=== PATIENT | male | born 1955 | race Caucasian/White ===

== ENCOUNTER 2017-01-19 20:59 | Inpatient (IN) | payer OTHER ==
[~2017-01-19] VITALS: Ht 177.8 cm; Wt 64.6 kg
[2017-01-19 21:14] LABS: ABG A-A DIFF O2 201.6 mmHg (10-20.0); ABG BASE EXCESS -13.5 mmol/L (-2.0-3.0); ABG HCO3 14.2 mmol/L (22.0-26.0); ABG OXYHEMOGLOBIN 96.6 % (94.0-100.0); ABG PCO2 47 mmHg (35-45); TEMPERATURE, FAHRENHEIT, BG 95.3 FAHREN (96.0-98.6)
[2017-01-19 21:15] LABS: ABG PH 7.136 (7.35-7.450); ALLEN TEST, BLOOD GAS Positive
[2017-01-19] MEDS ORDERED: FLUMAZENIL 0.1 MG/ML 5 ML VIAL IVP ONE (21:15)
[2017-01-19] MEDS ORDERED: NALOXONE HCL 1 MG/ML 2 ML SYG IVP ONE (21:15)
[2017-01-19] MEDS ORDERED: SODIUM CHLORIDE 0.9% 1,000 ML IV ONE (21:15)
[2017-01-19] MEDS: OXYGEN THERAPY IH SCH (21:21)
[2017-01-19 21:54] LABS: ANION GAP 16 mmol/L (8-16); BASOPHILS % (AUTO) 0.5 % (0.0-2.0); CALCIUM, TOTAL 8.5 mg/dL (8.8-10.5); CARBON DIOXIDE 22 mmol/L (22-29); CHLORIDE 103 mmol/L (98-107); CREATININE 1.78 mg/dL (0.60-1.30); GLOMERULAR FILTR. RATE CALC 39 mL/min (>60); HEMATOCRIT 45.5 % (41-53); HEMOGLOBIN 14.6 g/dL (13.5-17.5); LYMPHOCYTES # (AUTO) 5.5 K/uL (1.0-4.8); LYMPHOCYTES % (AUTO) 53.9 % (22.0-44.0); MEAN CORPUSCULAR HEMOGLOBIN 31.8 pg (26.0-34.0); MEAN CORPUSCULAR HGB CONC 32.2 G/dL (31.0-37.0); MEAN CORPUSCULAR VOLUME 99 fL (80-100); MONOCYTES % (AUTO) 9.6 % (2.0-9.0); NEUTROPHILS # (AUTO) 3.5 K/uL (1.8-7.7); PLATELET COUNT (AUTO) 223 K/uL (150-450); POTASSIUM 3.3 mmol/L (3.5-5.1); RED CELL DISTRIBUTION WIDTH 13.9 % (11.5-14.5); SODIUM SERUM 141 mmol/L (136-145); UREA NITROGEN, BLOOD 19 mg/dL (7-18); WHITE BLOOD COUNT (AUTO) 10.1 K/uL (4.5-11.0)
[2017-01-19 21:58] LABS: APPEARANCE,URINE CLEAR (CLEAR); GLUCOSE, URINE (UA) NEGATIVE (NEGATIVE); KETONES,URINE NEGATIVE (NEGATIVE); LEUKOCYTE ESTERASE ,URINE NEGATIVE (NEGATIVE); OCCULT BLOOD,URINE NEGATIVE (NEGATIVE); PROTEIN,URINE TRACE (NEGATIVE)
[2017-01-19 22:02] LABS: AMMONIA 41 umol/L (11-32)
[2017-01-19 22:03] LABS: TROPONIN I < 0.02 ng/mL (0.00-0.05)
[2017-01-19 22:11] LABS: RBC,URINE None Seen /HPF (0-2); SQUAMOUS EPITHELIAL CELL,UR Few /LPF (None Seen); WBC,URINE 0-2 /HPF (0-5)
[2017-01-19 22:13] LABS: B-TYPE NATRIURETIC PEPTIDE 41 pg/mL (0-100)
[2017-01-19 22:20] LABS: ACETAMINOPHEN < 2 mcg/mL (10-30); ALANINE AMINOTRANSFERASE 39 U/L (12-78); ALBUMIN 3.8 g/dL (3.4-5.0); ASPARTATE AMINOTRANSFERASE 51 U/L (15-37); BILIRUBIN,TOTAL 0.9 mg/dL (0.1-1.0); CREATINE KINASE MB 1.8 ng/mL (0-5); CREATINE KINASE, TOTAL 115 U/L (39-308); TOTAL PROTEIN, SERUM 7.9 g/dL (6.4-8.2)
[2017-01-19 22:30] LABS: LACTIC ACID 5.5 mmol/L (0.4-2.0)
[2017-01-19 22:41] LABS: ABG A-A DIFF O2 116.8 mmHg (10-20.0); ABG BASE EXCESS -9.4 mmol/L (-2.0-3.0); ABG HCO3 16.9 mmol/L (22.0-26.0); ABG OXYHEMOGLOBIN 84.8 % (94.0-100.0); ABG PCO2 45 mmHg (35-45); ABG PH 7.223 (7.35-7.450)
[2017-01-19 22:42] LABS: ALLEN TEST, BLOOD GAS Positive
[2017-01-19] MEDS ORDERED: SODIUM BICARBONATE [ADULT] 8.4% 50 MEQ/50 ML SYRINGE IVP ONE (23:00)
[2017-01-19] MEDS ORDERED: MAGNESIUM SULFATE 2 GM, MVI, ADULT NO.1 WITH VIT K 10 ML, THIAMINE HCL 100 MG, FOLIC AC... IV ONE ×5 (23:00)
[2017-01-19] MEDS ORDERED: 0.9% SODIUM CHLORIDE 10 ML SYRINGE IVP PRN (23:30)
[2017-01-19] MEDS ORDERED: ONDANSETRON HCL 4 MG/2 ML VIAL IVP PRN (23:30)
[2017-01-19 23:39] LABS: REFLEX LACTIC ACID? YES YES
[2017-01-20 08:09] LABS: ABG A-A DIFF O2 42.3 mmHg (10-20.0); ABG BASE EXCESS -0.9 mmol/L (-2.0-3.0); ABG HCO3 23.7 mmol/L (22.0-26.0); ABG PCO2 40 mmHg (35-45); ABG PH 7.393 (7.35-7.450); ALLEN TEST, BLOOD GAS Positive; TEMPERATURE, FAHRENHEIT, BG 98.6 FAHREN (96.0-98.6)
[2017-01-20 08:14] LABS: BASOPHILS # (AUTO) 0.02 K/uL (0.00-0.20); BASOPHILS % (AUTO) 0.2 % (0.0-2.0); EOSINOPHILS % (AUTO) 0 % (1.0-6.0); HEMATOCRIT 41.1 % (41-53); HEMOGLOBIN 13.6 g/dL (13.5-17.5); LYMPHOCYTES # (AUTO) 0.3 K/uL (1.0-4.8); LYMPHOCYTES % (AUTO) 3.3 % (22.0-44.0); MEAN CORPUSCULAR HEMOGLOBIN 32.4 pg (26.0-34.0); MEAN CORPUSCULAR HGB CONC 33.1 G/dL (31.0-37.0); MEAN CORPUSCULAR VOLUME 98 fL (80-100); MONOCYTES # (AUTO) 0.8 K/uL (0.1-1.0); MONOCYTES % (AUTO) 7.9 % (2.0-9.0); NEUTROPHILS # (AUTO) 9.1 K/uL (1.8-7.7); NEUTROPHILS % (AUTO) 88.6 % (40.0-70.0); PLATELET COUNT (AUTO) 160 K/uL (150-450); RED CELL DISTRIBUTION WIDTH 14.1 % (11.5-14.5); WHITE BLOOD COUNT (AUTO) 10.3 K/uL (4.5-11.0)
[2017-01-20 08:26] LABS: ALANINE AMINOTRANSFERASE 38 U/L (12-78); ALBUMIN 3.4 g/dL (3.4-5.0); ANION GAP 9 mmol/L (8-16); ASPARTATE AMINOTRANSFERASE 44 U/L (15-37); BILIRUBIN,TOTAL 0.9 mg/dL (0.1-1.0); CALCIUM, TOTAL 7.8 mg/dL (8.8-10.5); CARBON DIOXIDE 25 mmol/L (22-29); CHLORIDE 106 mmol/L (98-107); CREATININE 0.85 mg/dL (0.60-1.30); GLOMERULAR FILTR. RATE CALC > 60 mL/min (>60); POTASSIUM 3.9 mmol/L (3.5-5.1); SODIUM SERUM 140 mmol/L (136-145); UREA NITROGEN, BLOOD 14 mg/dL (7-18)
[2017-01-20] MEDS: OXYGEN THERAPY IH SCH (08:32)
[2017-01-20] MEDS ORDERED: ONDANSETRON HCL 4 MG/2 ML VIAL IVP PRN (13:00)
[2017-01-20] MEDS ORDERED: HYDROCODONE/ACETAMINOPHEN 5-325 MG TABLET PO PRN (13:00)
[2017-01-20] MEDS ORDERED: IPRATROPIUM BROMIDE 0.5 MG/2.5 ML NEB SOLUTION NEB PRN (13:00)
[2017-01-20] MEDS ORDERED: MORPHINE SULFATE 4 MG/ML SYRINGE IVP PRN (13:00)
[2017-01-20] MEDS ORDERED: BISACODYL 10 MG RECTAL RECTAL SUPPOSITORY PR PRN (13:00)
[2017-01-20] MEDS ORDERED: MAGNESIUM HYDROXIDE SUSPENSION 30 ML UDCUP PO PRN (13:00)
[2017-01-20] MEDS ORDERED: ZOLPIDEM TARTRATE 5 MG TABLET PO PRN (13:00)
[2017-01-20] MEDS ORDERED: ALBUTEROL SULFATE 2.5 MG/0.5 ML NEB SOLUTION NEB PRN (13:00)
[2017-01-20] MEDS: ACETAMINOPHEN 325 MG TABLET PO PRN ×2 (13:18→23:43)
[2017-01-20 15:17] VITALS: BP 97/61
[2017-01-20] MEDS: HEPARIN SODIUM,PORCINE 5,000 UNITS/ML VIAL SQ SCH ×2 (16:25→23:43)
[2017-01-20 19:14] VITALS: BP 117/72
[2017-01-20] MEDS: DOCUSATE SODIUM 100 MG CAPSULE PO SCH (21:33)
[2017-01-20 23:42] VITALS: BP 107/59
[2017-01-21] MEDS ORDERED: SODIUM CHLORIDE 0.9% 250 ML IV ONE (00:22)
[2017-01-21] MEDS: CefTRIAXone 1 GM/DEXTROSE 50 ML IV SCH (00:30)
[2017-01-21 04:32] VITALS: BP 99/55
[2017-01-21 07:22] VITALS: BP 103/66
[2017-01-21] MEDS: PANTOPRAZOLE SODIUM 40 MG/VIAL IVP SCH (08:16)
[2017-01-21] MEDS: DOCUSATE SODIUM 100 MG CAPSULE PO SCH ×2 (08:16→20:57)
[2017-01-21] MEDS: HEPARIN SODIUM,PORCINE 5,000 UNITS/ML VIAL SQ SCH ×2 (08:16→15:54)
[2017-01-21] MEDS: OXYGEN THERAPY IH SCH (08:17)
[2017-01-21] MEDS ORDERED: CefTRIAXone SODIUM 1 GM/VIAL IM SCH (09:00)
[2017-01-21 11:20] VITALS: BP 107/62
[2017-01-21 15:39] VITALS: BP 115/77
[2017-01-21] MEDS: ACETAMINOPHEN 325 MG TABLET PO PRN (15:54)
[2017-01-21 19:34] VITALS: BP 103/76
[2017-01-21 23:25] VITALS: BP 99/54
[2017-01-22] MEDS: CefTRIAXone 1 GM/DEXTROSE 50 ML IV SCH (00:11)
[2017-01-22] MEDS: HEPARIN SODIUM,PORCINE 5,000 UNITS/ML VIAL SQ SCH ×2 (00:11→08:45)
[2017-01-22 04:02] VITALS: BP 118/67
[2017-01-22 07:29] VITALS: BP 109/64
[2017-01-22] MEDS: OXYGEN THERAPY IH SCH (08:00)
[2017-01-22] MEDS: PANTOPRAZOLE SODIUM 40 MG/VIAL IVP SCH (08:45)
[2017-01-22] MEDS: DOCUSATE SODIUM 100 MG CAPSULE PO SCH (08:45)
[2017-01-22 11:40] VITALS: BP 131/75
[2017-01-22] MEDS ORDERED: CEPH500 PO (14:24)
[2017-01-22] MEDS ORDERED: SODIUM BICARBONATE [PEDIATRIC] 8.4% 10 MEQ/10 ML SYRINGE IVP ONE (14:51)
[2017-01-22] MEDS ORDERED: EPINEPHrine 1:10,000 [1 MG/10 ML] SYRINGE IVP ONE (14:51)
== END 2017-01-22 16:05 | disposition home or self-care (01) | DRG 816 ==
LOC: EMS 21:02 → EDBD 21:02 → 6N 01-20 14:05
PROVIDERS: ADMIT Hospitalist; ATTEND Hospitalist
DX: T40.1X1A Poisoning by heroin, accidental (unintentional), initial encounter (principal); J96.90 Respiratory failure, unspecified, unspecified whether with hypoxia or hypercapnia; G92 Toxic encephalopathy; F15.10 Other stimulant abuse, uncomplicated; F10.129 Alcohol abuse with intoxication, unspecified; Y92.89 Other specified places as the place of occurrence of the external cause; E87.6 Hypokalemia
CPT/HCPCS: 51702; 70450; 72125; 82805; 83605; 87040; 93005; 96361; 96365; 96366; 96375; 99291; C9113; G0480; G0481; J0171; J0696; J1644; J3411; J3475; J3490; J7030; J7050